=== PATIENT | male | born 1945 | race Caucasian/White ===

== ENCOUNTER 2023-08-25 10:07 | Observation (INO) ==
[2023-08-25 10:18] VITALS: BMI 28.1
[2023-08-25 10:22] LABS: BASOPHILS # (AUTO) 0.1 X10^3/uL (0.0-0.1); BASOPHILS % (AUTO) 0.6 % (0.2-1.0); EOSINOPHILS # (AUTO) 0.1 x10^3/uL (0.0-0.2); EOSINOPHILS % (AUTO) 0.7 % (0.9-2.9); HEMATOCRIT 29.1 % (42.0-54.0); HEMOGLOBIN 9.7 g/dL (13.5-18.0); LYMPHOCYTES # (AUTO) 1.6 X10^3/uL (1.3-2.9); MEAN CORPUSCULAR HEMOGLOBIN 29.4 pg (27.0-34.0); MEAN CORPUSCULAR HGB CONC 33.4 g/dL (33.0-35.0); MEAN CORPUSCULAR VOLUME 87.8 fL (80.0-100.0); MONOCYTES # (AUTO) 1.2 x10^3/uL (0.3-0.8); MONOCYTES % (AUTO) 10.4 % (0.0-13.0); NEUTROPHILS # (AUTO) 8.6 x10^3/uL (2.2-4.8); NEUTROPHILS % (AUTO) 74.3 % (42.0-75.0); PLATELET COUNT 200 X10^3/uL (150.0-450.0); RED BLOOD COUNT 3.31 X10^6/uL (4.7-6.0); RED CELL DISTRIBUTION WIDTH 18.6 % (11.6-16.5); WHITE BLOOD COUNT 11.6 X10^3/uL (3.6-10.0)
[2023-08-25 10:30] LABS: INR 1.09 (0.8-1.3)
[2023-08-25 10:38] LABS: ALBUMIN 3.3 g/dL (3.4-5.0); CALCIUM 9.1 mg/dL (8.5-10.1); CARBON DIOXIDE 27.9 mmol/L (21-32); CHOL/HDL RATIO 2.5 (0.0-5.0); COR CA(FOR HYPOALB) 9.7 mg/dL (8.5-10.1); CREATININE 1.72 mg/dL (0.70-1.30); POTASSIUM 3.7 mmol/L (3.5-5.1); TOTAL PROTEIN 6.9 g/dL (6.4-8.2)
--- NOTE | 2023-08-25 10:38 | DR.WEAKNES ---
HPI Time Seen Time Seen by Provider: 08/25/23 10:10 Primary Care Physician Primary Care Physician: Dr. Swenson at [facility] in [place] Complaints Chief Complaint Doctors Comments: According to the patient's spouse on yesterday he did seem a little bit disoriented. Did not answer questions appropriately. When she Gout home from work yesterday at 5 PM.This patient was more disoriented this morningAnd she brought him to the ER for further evaluation. Chief Complaint:: Pt's states that yesterday morning is the last time she has seen him normal. When she got home from work at 5pm yesterday he was was wandering around the yard and couldn't get his words out right. She states that this morning he got up and was just wandering around the house not making sense Source History Provided: Family Member Mode of Arrival Mode of Arrival: Ambulatory Timing Onset of Chief Complaint: 08/24/23 Symptom Onset: Known (32 hours) Context Stroke Symptoms: Acute confusion PMH PMH Past Medical History: Yes Past Medical History: Anemia, Dyslipidemia, Hypertension and Renal Disease Past Medical History Comment: Prostate Cancer, Afib Past Surgical History: Yes Surgical History: Ortho Surgery Past Surgical History Comment: TAVR (07/12/23), Bilateral TKA, Prostatectomy Family History History of Family Medical Conditions: Yes Family Medical History: Diabetes Mellitus Social History Does patient currently use any type of tobacco product: No Have you used tobacco products in the last 12 months: No Type of Tobacco Use: None Does any household member use tobacco: No Alcohol Use: None Do you use any recreational Drugs:: No Lives With: Spouse Lives Where: Home Travel Risk Coronavirus risk:travel/contact w/high risk person: No Has patient experienced Coronavirus symptoms: No Infectious screening In the last 2 months have you had wt loss of >10#?: NO Have you had fever, night sweats or hemotysis?: No Have you traveled outside the country in the last 6 months?: No Isolation: Standard ROS Review of Systems Constitutional: Other (Change in mental status, unstable gait) Eyes: No Symptoms Reported ENTM: No Symptoms Reported Respiratoy: No Symptoms Reported Cardiovascular: No Symptoms Reported Gastrointestinal/Abdominal: No Symptoms Reported Genitourinary: No Symptoms Reported Neurological: Other (Expressive aphasia) Endocrine: No Symptoms Reported Psychiatric: No Symptoms Reported PE Vital Signs Vitals: Vital Signs Temperature 98.1 F Pulse Rate 62 Pulse Rate 64 Pulse Rate 70 Pulse Rate 63 Pulse Rate 64 Pulse Rate 66 Pulse Rate 65 Pulse Rate 64 Pulse Rate 64 Pulse Rate 75 Pulse Rate 66 Pulse Rate 69 Pulse Rate 70 Pulse Rate 66 Pulse Rate 68 Pulse Rate 63 Pulse Rate 65 Pulse Rate 66 Pulse Rate 66 Pulse Rate 67 Pulse Rate 70 Pulse Rate 73 Pulse Rate 74 Pulse Rate 72 Pulse Rate 74 Respiratory Rate 23 Respiratory Rate 38 Respiratory Rate 27 Respiratory Rate 29 Respiratory Rate 36 Respiratory Rate 19 Respiratory Rate 24 Respiratory Rate 26 Respiratory Rate 18 Respiratory Rate 17 Respiratory Rate 23 Respiratory Rate 21 Respiratory Rate 24 Respiratory Rate 25 Respiratory Rate 19 Respiratory Rate 20 Respiratory Rate 18 Respiratory Rate 17 Respiratory Rate 18 Respiratory Rate 12 Respiratory Rate 20 Blood Pressure 174/79 Blood Pressure 161/72 Blood Pressure 157/72 Blood Pressure 231/160 Blood Pressure 231/160 Blood Pressure 173/84 Blood Pressure 170/75 Blood Pressure 165/91 Blood Pressure 147/93 Blood Pressure 128/61 Blood Pressure 111/53 Blood Pressure 115/53 Blood Pressure 112/53 Blood Pressure 150/69 Blood Pressure 145/69 Blood Pressure 199/81 Blood Pressure 190/83 O2 Sat by Pulse Oximetry 100 O2 Sat by Pulse Oximetry 100 O2 Sat by Pulse Oximetry 99 O2 Sat by Pulse Oximetry 99 O2 Sat by Pulse Oximetry 100 O2 Sat by Pulse Oximetry 99 O2 Sat by Pulse Oximetry 99 O2 Sat by Pulse Oximetry 99 O2 Sat by Pulse Oximetry 99 O2 Sat by Pulse Oximetry 99 O2 Sat by Pulse Oximetry 98 O2 Sat by Pulse Oximetry 98 O2 Sat by Pulse Oximetry 99 O2 Sat by Pulse Oximetry 98 O2 Sat by Pulse Oximetry 85 O2 Sat by Pulse Oximetry 94 O2 Sat by Pulse Oximetry 99 O2 Sat by Pulse Oximetry 96 O2 Sat by Pulse Oximetry 70 O2 Sat by Pulse Oximetry 100 O2 Sat by Pulse Oximetry 96 O2 Sat by Pulse Oximetry 98 O2 Sat by Pulse Oximetry 99 O2 Sat by Pulse Oximetry 97 O2 Sat by Pulse Oximetry 98 O2 Sat by Pulse Oximetry 97 General Limitations: Physical Limitation (Present unstable gait) General Appearance: Other (Confusion) Head Head Exam: Normal Inspection, Atraumatic and Normocephalic Eyes Eye exam: Normal Appearance, PERRL and EOMI Eyelids: Normal Inspection: Bilateral Pupils: Regular, Round: Bilateral ENT ENT Exam: Normal Exam, Normal Oropharynx and Normal External Ear Exam Mouth Exam: Normal Inspection Throat Exam: Normal Inspection Neck Neck Exam: Normal Inspection, Full ROM and Trachea Midline Chest Chest Inspection: Normal Inspection and Symmetric Chest Wall Rise Respiratory Respiratory Exam: Normal Lung Sounds Bilat Respiratory Exam: Bilateral: Clear to Auscultation Cardiovascular Cardiovascular Exam: Regular Rate and Normal Rhythm Abdominal Exam Abdominal Exam: Normal Inspection, Normal Bowel Sounds and Soft Extremities Extremities Exam: Normal Inspection and Full ROM Back Back Exam: Normal Inspection Neurologic Neurological Exam: Alert Patient Oriented To: Person and Place Speech: Expressive Aphasia Motor Strength - LUE: 4/5 Motor Strength - RUE: 4/5 Motor Strength - LLE: 4/5 Motor Strength - RLE: 4/5 Psychiatric Psychiatric Exam: Flat Affect Skin Skin Exam: Warm, Dry and Intact MDM Differential Diagnosis Differential Diagnosis: CVA, Electrolyte Disorder, TIA and Other (uti,pneumonia) COURSE Treatment Treatment: This patient was placed on the stroke alert protocol and Dr. Venu Giron neurologist evaluated the patient he called me back at 1045 he stated the patient did not seem to meet criteria for an acute stroke or since it has been over 32 hours since the symptoms started he did not require any tPA or anything is CT of brain did not show acute stroke. The patient's symptoms are concerning we may consider an MRI of the brain without contrast. This the patient also had some leukocytosis he suggest that we do try to find a source of the leukocytosis so we are waiting on results of x-ray also the urine analysis and will proceed as needed for further evaluation for the leukocytosis. He stated to continue the patient on aspirin daily and proceed as needed with further neurologic evaluation and treatment of the source of the leukocytosis. This patient had a MRI of his brain that did not show an acute bleed or no acute intracranial abnormality. We did a urinalysis that was negative chest x-ray did not show any intra or thoracic abnormality except some mild CHF. During the end of this ER evaluation the patient was more alert and was able to speak better seems that he was coming back around almost to his normal demeanor. However spoke to the on-call physician Dr. Singh and we are going to refer the patient to observation for TIA. I spoke to Dr. Singh at 1410 and she agreed to the observation admission. The patient family was told of the intent to refer to observation and that they were agreeable to the observation ROR Labs Reviewed Laboratory Results Reviewed?: Yes 08/25/23 10:15 08/25/23 10:15 Laboratory: WBC 11.6 X10^3/uL (3.6-10.0) H 08/25/23 10:15 RBC 3.31 X10^6/uL (4.7-6.0) L 08/25/23 10:15 Hgb 9.7 g/dL (13.5-18.0) L 08/25/23 10:15 Hct 29.1 % (42.0-54.0) L 08/25/23 10:15 MCV 87.8 fL (80.0-100.0) 08/25/23 10:15 MCH 29.4 pg (27.0-34.0) 08/25/23 10:15 MCHC 33.4 g/dL (33.0-35.0) 08/25/23 10:15 RDW 18.6 % (11.6-16.5) H 08/25/23 10:15 Plt Count 200 X10^3/uL (150.0-450.0) 08/25/23 10:15 MPV 8.0 fL (7.4-11.0) 08/25/23 10:15 Neut % (Auto) 74.3 % (42.0-75.0) 08/25/23 10:15 Lymph % (Auto) 14.0 % (21.0-51.0) L 08/25/23 10:15 Terry % (Auto) 10.4 % (0.0-13.0) 08/25/23 10:15 Eos % (Auto) 0.7 % (0.9-2.9) L 08/25/23 10:15 Baso % (Auto) 0.6 % (0.2-1.0) 08/25/23 10:15 Neut # (Auto) 8.6 x10^3/uL (2.2-4.8) H 08/25/23 10:15 Lymph # (Auto) 1.6 X10^3/uL (1.3-2.9) 08/25/23 10:15 Terry # (Auto) 1.2 x10^3/uL (0.3-0.8) H 08/25/23 10:15 Eos # (Auto) 0.1 x10^3/uL (0.0-0.2) 08/25/23 10:15 Baso # (Auto) 0.1 X10^3/uL (0.0-0.1) 08/25/23 10:15 Absolute Nucleated RBC 0.0 /100WBC 08/25/23 10:15 PT 13.9 SECONDS (11.8-14.3) 08/25/23 10:15 INR Target Range - 08/25/23 10:15 INR 1.09 (0.8-1.3) 08/25/23 10:15 APTT < 20.0 SECONDS (22.9-36.5) L 08/25/23 10:15 PTT Comment - 08/25/23 10:15 Fibrinogen 419 mg/dL (239-489) 08/25/23 10:15 Sodium 145 mmol/L (136-145) 08/25/23 10:15 Corrected Sodium 146 mmol/L (136-145) H 08/25/23 10:15 Potassium 3.7 mmol/L (3.5-5.1) 08/25/23 10:15 Chloride 108 mmol/L (98-107) H 08/25/23 10:15 Carbon Dioxide 27.9 mmol/L (21-32) 08/25/23 10:15 BUN 21 mg/dL (7-18) H 08/25/23 10:15 Creatinine 1.72 mg/dL (0.70-1.30) H 08/25/23 10:15 Est GFR (MDRD) Af Amer 50 (>60) L 08/25/23 10:15 Est GFR (MDRD) Non-Af 41 (>60) L 08/25/23 10:15 Glucose 137 mg/dL (65-99) H 08/25/23 10:15 Calcium 9.1 mg/dL (8.5-10.1) 08/25/23 10:15 Corrected Calcium 9.7 mg/dL (8.5-10.1) 08/25/23 10:15 Total Bilirubin 0.40 mg/dL (0.2-1.0) 08/25/23 10:15 AST 27 Units/L (15-37) 08/25/23 10:15 ALT 26 Units/L (12-78) 08/25/23 10:15 Alkaline Phosphatase 80 Units/L (46-116) 08/25/23 10:15 Creatine Kinase 59 Units/L (39-308) 08/25/23 10:15 Troponin I High Sens 11.2 ng/L (4.0-60.0) 08/25/23 10:15 B-Natriuretic Peptide 213 pg/mL (0-79) H 08/25/23 10:15 Total Protein 6.9 g/dL (6.4-8.2) 08/25/23 10:15 Albumin 3.3 g/dL (3.4-5.0) L 08/25/23 10:15 Globulin 3.6 g/dL (2.5-4.5) 08/25/23 10:15 Albumin/Globulin Ratio 0.9 Ratio (1.1-2.1) L 08/25/23 10:15 Triglycerides 157 mg/dL (0-150) H 08/25/23 10:15 Cholesterol 114 mg/dL (0-200) 08/25/23 10:15 LDL Cholesterol, Calc 38 mg/dL (0-100) 08/25/23 10:15 HDL Cholesterol 45 mg/dL (40-60) 08/25/23 10:15 Cholesterol/HDL Ratio 2.5 (0.0-5.0) 08/25/23 10:15 Specimen Type Catherized urine 08/25/23 11:08 Urine Color Yellow (YELLOW) 08/25/23 11:08 Urine Appearance Clear (CLEAR) 08/25/23 11:08 Urine pH 6.0 (5.0 - 8.0) 08/25/23 11:08 Ur Specific [place] 1.025 (1.000-1.030) 08/25/23 11:08 Urine Protein 2+ (NEGATIVE) 08/25/23 11:08 Urine Glucose (UA) Negative (NEGATIVE) 08/25/23 11:08 Urine Ketones Negative (NEGATIVE) 08/25/23 11:08 Urine Blood Negative (NEGATIVE) 08/25/23 11:08 Urine Nitrite Negative (NEGATIVE) 08/25/23 11:08 Urine Bilirubin Negative (NEGATIVE) 08/25/23 11:08 Urine Urobilinogen Normal (NORMAL) 08/25/23 11:08 Ur Leukocyte Esterase Negative (NEGATIVE) 08/25/23 11:08 Urine RBC 0-2 /HPF (0-3) 08/25/23 11:08 Urine WBC 0-2 /HPF (0-5) 08/25/23 11:08 Ur Squamous Epith Cells Rare /HPF (NEGATIVE) 08/25/23 11:08 Ur Renal Epithelial Cell Few /HPF (NEGATIVE) 08/25/23 11:08 Urine Bacteria Trace /HPF (NEGATIVE) 08/25/23 11:08 Hyaline Casts Few /LPF (NEGATIVE) 08/25/23 11:08 Ur Culture Indicated? No/not indicated 08/25/23 11:08 SARS-CoV-2 (PCR) Negative (NEGATIVE) 08/25/23 11:05 Influenza Type A (PCR) Negative (NEGATIVE) 08/25/23 11:05 Influenza Type B (PCR) Negative (NEGATIVE) 08/25/23 11:05 RSV (PCR) Negative (NEGATIVE) 08/25/23 11:05 Opioid Opioid Risk Tool Age (Yoel box if 16-45): No History of Preadolescent Sexual Abuse: No Total: 0 Total Score Risk Category: Low Risk Copyright: Armand REDDING predicting aberrant behaviors Discharge Plan Diagnosis Discharge Problem: Brain TIA, Mild congestive heart failure Discharge Plan Patient Disposition: ADMITTED INPATIENT Condition: Stable Prescriptions: No Action sennosides [Senokot] 8.6 mg Tablet 8.6 mg PO BID baclofen 10 mg Tablet 10 mg PO TID prednisone 5 mg Tablets,Dose Pack 5 mg PO DIRECTED Rx Instructions: see taper instructions finasteride 5 mg Tablet 5 mg PO QDAY rosuvastatin 20 mg Tablet 20 mg PO QDAY acetaminophen [Tylenol] 325 mg Capsule 650 mg PO QID PRN cholecalciferol (vitamin D3) [Vitamin D3] 50 mcg (2,000 unit) Capsule 50 mcg PO QDAY lidocaine 5 % Ointment 1 applic TOPICAL QID PRN tamsulosin [Flomax] 0.4 mg Capsule 0.4 mg PO QDAY Health Concerns: Post Hospitalization: new medications and changes needed to prevent readmission or further decline. Pt educated and given instructions on all concerns. Plan of Treatment: Continue with present treatment and follow up plan. Pt is to keep follow up appointment as instructed and take medications as ordered. Orders to Discharge Patient Discharge Orders: Transfer (Routine); Ordered 08/25/23 Ordered By: Ronaldo Taylor Follow ups/Referrals Follow ups/Referrals: JESUS PURI [Primary Care Provider] - 3 days Instructions Stand Alone Forms: Post Hospital Follow Up Care
--- NOTE | 2023-08-25 10:39 | CT ---
EXAM:BRAIN W/O CONHISTORY:AMS;COMPARISON:No relevant prior studies were available for comparison at the time of interpretation..TECHNIQUE:CT images were obtained. Multiplanar reconstructions were created on a separate workstation and used during interpretation. All CT scans at this facility is dose modulation, iterative reconstruction, and/or weight-based dosing as appropriate to reduce radiation to levels as low as reasonably achievable (ALARA). Postprocessing details, radiation dose, and contrast dose (if applicable) are recorded in the patient's medical record.FINDINGS:Acute findings: There is no intracranial hemorrhage. No mass effect. No intra-axial or extra-axial fluid collection. There is no mass. No tentorial, uncal, or tonsillar herniation.Brain volume and white matter: There is diffuse cortical atrophy. There is hypoattenuation in the supratentorial white matter consistent with chronic microvascular ischemic disease.Ventricles: No hydrocephalusMidline structures: Pituitary gland and corpus callosum are normal.Posterior fossa and skull base: Cerebellum and posterior fossa are within normal limits. Basal cisterns are not effaced.Sinuses and mastoids: Paranasal sinuses and mastoid air cells are predominantly clear.Globes and Orbits: Bilateral lens implants. Globes are intact. Bony orbits are intact. Extraocular muscles and retrobulbar fat appear normal.Skull and soft tissues: No depressed skull fracture. Calvarium appears intact. No scalp injury is identified.IMPRESSION:1. No acute intracranial abnormalityTHIS IS AN ELECTRONICALLY VERIFIED FINAL REPORT08/25/2023 10:36 AM - Electronically signed by Lj Meek MD
--- NOTE | 2023-08-25 10:48 | TELESTROKE ---
[facility] Consult Date of Consult Date of Exam: 08/25/23 Time of Arrival to the ED: 10:15 Vital Signs Vital Signs: Temp Pulse Resp BP Pulse Ox O2 Del Method 08/25/23 10:12 98.1 F 74 20 190/83 97 Room Air History of Present Illness History of Present Illness: [facility] Consult Services Patient Name:Linus Tapia Date of :1945 Identification Number: Date of Service:08/25/2023 10:14:00 Diagnosis:R41.0 - Disorientation, unspecified Impression: This is a 78 year old male with CAD s/p TAVR who presents to the [facility] in the morning of 08/25/23 for complaints of altered mental status. The reports he was last known well at 5 AM yesterday, 08/24/23 (29 hours ago). The left for work at 5 AM. When she returned from work at 5 PM he was altered and walking around the yard picking up sticks and acting unusual and not speaking normally. She did not bring him to the hospital. This morning, he is still confused, so she brought him to the hospital today. On exam he has no focal weakness, but is confused and easily distractible and slow to answer questions. He names most objects and reads sentences ,but does so very slowly. He is oriented to self but not month or age etc. He follows simple commands. Given diffuse confusion, differential includes hypertensive encephalopathy versus metabolic/infectious/toxic encephalopathy. Indeed, he has leukocytosis today, which supports this suspicion. He is not a tPA/TNk candidate due to LKW>4.5 hours. Recs below. Recommendations: Telemetry Floor Bedside Swallow Eval DVT Prophylaxis Euglycemia and Avoid Hyperthermia (PRN Acetaminophen) Systolic BP cap <180 Continue home aspirin 81 mg daily. If persistent alteration without identified cause, Brain MRI without contrast Metabolic, infectious, and toxic workup including (or per primary team): CXR, UA, CBC, CMP, LFTs, NH3, TSH, COVID. Treat abnormalities as appropriate. Delirium precautions (lights on during day and off at night, family visits as appropriate, familiar objects in room, avoid polypharmacy, nighttime strategies to improve sleep by non-sedating means, encourage mobility as tolerated) If infectious signs (fever or leukocytosis) and altered mentation, but no identifiable source of infection, obtain blood culture and lumbar puncture with CSF testing for: HSV/EBV/VZV/CMV PCR, culture, gram stain, glucose, protein, cell counts. Advanced Imaging: Advanced Imaging Deferred because: LKW >24 hours, exam not suggestive of LVO Metrics: Last Known Well: 08/24/2023 05:00:00 [facility] Notification Time: 08/25/2023 10:13:59 Arrival Time: 08/25/2023 10:15:00 Stamp Time: 08/25/2023 10:14:00 Initial Response Time: 08/25/2023 10:21:58Symptoms: Altered mental status. Initial patient interaction: 08/25/2023 10:21:58 NIHSS Assessment Completed: 08/25/2023 10:28:00Patient is not a candidate for Thrombolytic. Thrombolytic Medical Decision: 08/25/2023 10:28:00Patient was not deemed candidate for Thrombolytic because of following reasons: Last Well Known Above 4.5 Hours. I personally Reviewed the CT Head and it Showed no acute pathology, no hemorrhage . Primary Provider Notified of Diagnostic Impression and Management Plan on: 08/25/2023 10:40:17 History of Present Illness:Patient is a 78 year old Male. Patient was brought by private transportation with symptoms of Altered mental status. This is a 78 year old male with CAD s/p TAVR who presents to the [facility] in the morning of 08/25/23 for complaints of altered mental status. The reports he was last known well at 5 AM yesterday, 08/24/23 (29 hours ago). The left for work at 5 AM. When she returned from work at 5 PM he was altered and walking around the yard picking up sticks and acting unusual and not speaking normally. She did not bring him to the hospital. This morning, he is still confused, so she brought him to the hospital today. On exam he has no focal weakness, but is confused and easily distractible and slow to answer questions. He names most objects and reads sentences ,but does so very slowly. He is oriented to self but not month or age etc. He follows simple commands. Past Medical History: Coronary Artery Disease Othere PMH: TAVR 07/12/23, prostate cancer Medications: No Anticoagulant use Antiplatelet use:YesASA 81 Reviewed EMR for current medications Allergies: Reviewed Social History: Drug Use: No Family History: There is no family history of premature cerebrovascular disease pertinent to this consultation ROS : 14 Points Review of Systems was performed and was negative except mentioned in HPI. Past Surgical History: There Is No Surgical History Contributory To Todays Visit Examination: BP(190/83),Pulse(75), 1A: Level of Consciousness - Alert; keenly responsive+ 0 1B: Ask Month and Age - Could Not Answer Either Question Correctly+ 2 1C: Blink Eyes & Squeeze Hands - Performs Both Tasks+ 0 2: Test Horizontal Extraocular Movements - Normal+ 0 3: Test Visual Que[place]o - No Visual Loss+ 0 4: Test Facial Palsy (Use Grimace if Obtunded) - Normal symmetry+ 0 5A: Test Left Arm Motor Drift - No Drift for 10 Seconds+ 0 5B: Test Right Arm Motor Drift - No Drift for 10 Seconds+ 0 6A: Test Left Leg Motor Drift - No Drift for 5 Seconds+ 0 6B: Test Right Leg Motor Drift - No Drift for 5 Seconds+ 0 7: Test Limb Ataxia (FNF/Heel-Lawson) - No Ataxia+ 0 8: Test Sensation - Normal; No sensory loss+ 0 9: Test Language/Aphasia - Normal; No aphasia+ 0 10: Test Dysarthria - Normal+ 0 11: Test Extinction/Inattention - No abnormality+ 0 NIHSS Score:2 Pre-Morbid Modified [place] Scale:0 Points = No symptoms at all Spoke with :ed provider Patient/Family was informed the Neurology Consult would occur via TeleHealth consult by way of interactive audio and video telecommunications and consented to receiving care in this manner. Patient is being evaluated for possible acute neurologic impairment and high probability of imminent or life-threatening deterioration. I spent total of 40 minutes providing care to this patient, including time for face to face visit via telemedicine, review of medical records, imaging studies and discussion of findings with providers, the patient and/or family. Dr Adryan Giron [facility] For Inpatient follow-up with [facility] physician please call [facility] . This is not an outpatient service. Post hospital discharge, please contact hospital directly. Please call or reconsult our service if there are any clinical or diagnostic changes. Medical Decision Making 08/25/23 10:15 08/25/23 10:15 Labs: Laboratory Results - last 24 hr 08/25/23 10:15 WBC 11.6 H RBC 3.31 L Hgb 9.7 L Hct 29.1 L MCV 87.8 MCH 29.4 MCHC 33.4 RDW 18.6 H Plt Count 200 MPV 8.0 Neut % (Auto) 74.3 Lymph % (Auto) 14.0 L Cloud % (Auto) 10.4 Eos % (Auto) 0.7 L Baso % (Auto) 0.6 Neut # (Auto) 8.6 H Lymph # (Auto) 1.6 Cloud # (Auto) 1.2 H Eos # (Auto) 0.1 Baso # (Auto) 0.1 Absolute Nucleated RBC 0.0 PT 13.9 INR Target Range - INR 1.09 PTT Comment - Fibrinogen 419 Sodium 145 Corrected Sodium 146 H Potassium 3.7 Chloride 108 H Carbon Dioxide 27.9 BUN 21 H Creatinine 1.72 H Est GFR (MDRD) Af Amer 50 L Est GFR (MDRD) Non-Af 41 L Glucose 137 H Calcium 9.1 Corrected Calcium 9.7 Total Bilirubin 0.40 AST 27 ALT 26 Alkaline Phosphatase 80 Creatine Kinase 59 Troponin I High Sens 11.2 Total Protein 6.9 Albumin 3.3 L Globulin 3.6 Albumin/Globulin Ratio 0.9 L Triglycerides 157 H Cholesterol 114 LDL Cholesterol, Calc 38 HDL Cholesterol 45 Cholesterol/HDL Ratio 2.5
--- NOTE | 2023-08-25 10:51 | EKG ---
Test Reason : possible stroke Blood Pressure : */* mmHG Vent. Rate : 73 BPM Atrial Rate : 73 BPM P-R Int : 156 ms QRS Dur : 94 ms QT Int : 400 ms P-R-T Axes : 52 31 48 degrees QTc Int : 440 ms Normal sinus rhythm Nonspecific ST abnormality Abnormal ECG No previous ECGs available Confirmed by Jean Marie Aguilar ([id number]) on 08/26/2023 7:33:06 AM Referred By: Confirmed By: Jean Marie Aguilar
--- NOTE | 2023-08-25 11:02 | RAD ---
EXAM:CHEST, 1 VIEWHISTORY:HTN, AMS;COMPARISON:No relevant prior studies were available for comparison at the time of interpretation.TECHNIQUE:CHEST, 1 VIEWFINDINGS:Chest:Lines and tubes: Cardiac leads overlie the chest.Mediastinum: Cardiomegaly.Pulmonary vessels: There is pulmonary vascular congestion.Lung oakley: No suspicious airspace opacity.Pleura: No effusion. No pneumothorax.Bones and soft tissues: No acute osseous or soft tissue abnormality.IMPRESSION:1. Heart failure suggestedTHIS IS AN ELECTRONICALLY VERIFIED FINAL REPORT08/25/2023 10:48 AM - Electronically signed by Lj Meek MD
[2023-08-25 11:17] LABS: BILIRUBIN,URINE NEGATIVE (NEGATIVE); BLOOD/HEMOGLOBIN,URINE NEGATIVE (NEGATIVE); GLUCOSE, URINE NEGATIVE (NEGATIVE); KETONES,URINE NEGATIVE (NEGATIVE); LEUKOCYTE ESTERASE ,URINE NEGATIVE (NEGATIVE); NITRITES,URINE NEGATIVE (NEGATIVE); PROTEIN,URINE 2+ (NEGATIVE); UROBILINOGEN,URINE NORMAL (NORMAL)
[2023-08-25 11:28] LABS: APPEARANCE,URINE CLEAR (CLEAR); BACTERIA,URINE TRACE /HPF (NEGATIVE); COLOR,URINE YELLOW (YELLOW); HYALINE CASTS, URINE FEW /LPF (NEGATIVE); RBC,URINE 0-2 /HPF (0-3); RENAL EPITHELIAL CELLS,URINE FEW /HPF (NEGATIVE); SQUAMOUS EPITHELIAL CELL,UR RARE /HPF (NEGATIVE)
--- NOTE | 2023-08-25 13:12 | MRI ---
EXAM: BRAIN W/O CON HISTORY: expressive aphasia; evaluate stroke COMPARISON: Head CT 08/25/2023 TECHNIQUE: Multiplanar multisequence MRI of the brain was obtained without contrast using standard departmental protocol. FINDINGS: Axial T2 imaging not submitted. T2 coronal images were submitted. Diffusion-weighted images show a small focal area of increased signal in the right posterior frontal white matter. This has increased signal on the ADC map and high T2 signal on FLAIR and T2 imaging. This is consistent with T2 shine through artifact. No abnormality to suggest acute ischemia. Age-related findings include central and cortical atrophy with abnormal signal in the periventricular white matter, most likely the micro-ischemic changes of aging. Otherwise cool and white matter have normal differentiation. There is no mass, shift, or hemorrhage. Cerebellar tonsils are at an appropriate level. Normal signal flow void in the central vessels as seen on coronal imaging. No abnormal signal on kvng ceptibility sequences. No fluid in the sinuses or mucosal thickening to suggest sinusitis. There is no mastoid effusion. IMPRESSION: 1. No acute findings THIS IS AN ELECTRONICALLY VERIFIED FINAL REPORT 08/25/2023 1:09 PM - Electronically signed by Rusty Self MD
[2023-08-25] MEDS ORDERED: TYLENOL 325 MG TAB PO PRN (15:05)
[2023-08-25] MEDS: LASIX IVP SCH (17:18)
[2023-08-25] MEDS: SENOKOT PO SCH (20:58)
[2023-08-26 06:02] LABS: BASOPHILS % (AUTO) 0.6 % (0.2-1.0); EOSINOPHILS # (AUTO) 0.2 x10^3/uL (0.0-0.2); EOSINOPHILS % (AUTO) 2.2 % (0.9-2.9); HEMATOCRIT 27.2 % (42.0-54.0); HEMOGLOBIN 9.1 g/dL (13.5-18.0); LYMPHOCYTES # (AUTO) 0.9 X10^3/uL (1.3-2.9); LYMPHOCYTES % (AUTO) 11.7 % (21.0-51.0); MEAN CORPUSCULAR HEMOGLOBIN 29.4 pg (27.0-34.0); MEAN CORPUSCULAR HGB CONC 33.7 g/dL (33.0-35.0); MEAN CORPUSCULAR VOLUME 87.2 fL (80.0-100.0); MEAN PLATELET VOLUME 8.2 fL (7.4-11.0); MONOCYTES # (AUTO) 1.1 x10^3/uL (0.3-0.8); MONOCYTES % (AUTO) 14.1 % (0.0-13.0); NEUTROPHILS # (AUTO) 5.7 x10^3/uL (2.2-4.8); NEUTROPHILS % (AUTO) 71.4 % (42.0-75.0); PLATELET COUNT 198 X10^3/uL (150.0-450.0); RED BLOOD COUNT 3.12 X10^6/uL (4.7-6.0); RED CELL DISTRIBUTION WIDTH 18.8 % (11.6-16.5)
[2023-08-26 06:15] LABS: ALANINE AMINOTRANSFERASE 24 Units/L (12-78); ALBUMIN 2.9 g/dL (3.4-5.0); ALKALINE PHOSPHATASE 59 Units/L (46-116); ASPARTATE AMINO TRANSFERASE 19 Units/L (15-37); BLOOD UREA NITROGEN 19 mg/dL (7-18); CALCIUM 8.8 mg/dL (8.5-10.1); CARBON DIOXIDE 29.8 mmol/L (21-32); CHLORIDE 106 mmol/L (98-107); COR CA(FOR HYPOALB) 9.7 mg/dL (8.5-10.1); CREATININE 1.62 mg/dL (0.70-1.30); GLUCOSE 100 mg/dL (65-99); POTASSIUM 3.8 mmol/L (3.5-5.1); SODIUM 143 mmol/L (136-145); TOTAL PROTEIN 6.2 g/dL (6.4-8.2); eGFR NON BLACK RACES 44 (>60)
[2023-08-26] MEDS ORDERED: CONSULT PHARMACY - POTASSIUM & MAGNESIUM XX SCH (07:00)
[2023-08-26] MEDS: PROSCAR PO SCH (08:36)
[2023-08-26] MEDS: MICRO K EXTEN CAP 10 MEQ PO SCH (08:36)
[2023-08-26] MEDS: FLOMAX PO SCH (08:36)
[2023-08-26] MEDS: VITAMIN D3 25 mcg (1,000 UNITS) PO SCH (08:37)
[2023-08-26] MEDS: CRESTOR TAB 10 MG PO SCH (08:37)
[2023-08-26 12:34] VITALS: BP 146/70; PULSE 90
[2023-08-26 12:35] VITALS: RESP 18; TEMP 97.2; O2SAT 98
--- NOTE | 2023-08-28 10:02 | DR.SSS ---
SHORT STAY SUMMARY Admission Date Date of Admission: 08/25/23 Discharge Date Discharge Date: 08/26/23 Admission Diagnoses Admission Diagnoses: Altered mental status TIA Discharge Diagnoses Discharge Diagnoses: TIA Pulmonary congestion Chief Complaint Chief Complaint: confusion, AMS History of Present Illness History of Present Illness: Patient is a 78-year-old male with a past medical history of hyperlipidemia, BPH, iron deficiency anemia presented with confusion and altered mental status. noticed patient to be not acting like himself yesterday evening, she stated that he seemed a bit disoriented and was wandering around the house. In the morning she noticed that patient was laughing randomly so she brought him to the ER. All the workup in the ER was negative including CT brain and MRI brain. It did not show any acute stroke. Patient's labs and urinalysis did not show any infection. Patient was admitted for observation and neurochecks. Past Medical History Past Medical History: Anemia, Dyslipidemia, Hypertension and Renal Disease Past Surgical History Surgical History: Angioplasty/Stents and Ortho Surgery Allergies Allergies Allergy/AdvReac Type Severity Reaction Status Date / Time No Known Allergies Allergy Verified 08/25/23 10:52 Medications Home Medications: No Known Allergies Allergy (Verified 08/25/23 10:52) CONTINUE taking the following medications acetaminophen 325 mg capsule (Tylenol) 650 mg PO QID PRN 08/25/23 [History] baclofen 10 mg tablet 10 mg PO TID 08/25/23 [History] cholecalciferol (vitamin D3) 50 mcg (2,000 unit) capsule (Vitamin D3) 50 mcg PO QDAY 08/25/23 [History] finasteride 5 mg tablet 5 mg PO QDAY 08/25/23 [History] lidocaine 5 % topical ointment 1 applic topical QID PRN 08/25/23 [History] prednisone 5 mg tablets in a dose pack 5 mg PO DIRECTED 08/25/23 [History] rosuvastatin 20 mg tablet 20 mg PO QDAY 08/25/23 [History] sennosides 8.6 mg tablet (Senokot) 8.6 mg PO BID 08/25/23 [History] tamsulosin 0.4 mg capsule (Flomax) 0.4 mg PO QDAY 08/25/23 [History] Family History Family Medical History: Diabetes Mellitus and Hypertension Social History Does patient currently use any type of tobacco product: No Have you used tobacco products in the last 12 months: No Type of Tobacco Use: None Does any household member use tobacco: No Alcohol Use: None Drug Use: None Review of Systems Constitutional: No Symptoms Reported Eyes: No Symptoms Reported ENT: No Symptoms Reported Respiratory: No Symptoms Reported Cardiovascular: No Symptoms Reported Gastrointestinal: No Symptoms Reported Genitourinary: No Symptoms Reported Musculoskeletal: No Symptoms Reported Skin: No Symptoms Reported Neurological: Confusion Physical Exam Vital Signs: Last Vital Signs Temp 97.2 F L 08/26/23 12:00 Pulse 90 08/26/23 12:33 Resp 18 08/26/23 12:00 BP 146/70 08/26/23 12:33 Pulse Ox 98 08/26/23 12:00 O2 Del Method Room Air 08/26/23 12:00 Oriented: Time (Month and day.), Person and Place Eyes: Normal Ear: Normal Nose: Normal Throat: Normal Respiratory: Diminished Throughout Cardiovascular: Normal Auscultation: Bowel Sounds: Normal Palpation: Normal Tenderness: Normal Skin: Normal Musculoskeletal: Normal Psychiatric: Normal Mood Description: Calm Affect: Flat Speech Pattern: Appropriate and Delayed Labs Labs: Laboratory Last Values WBC 8.0 X10^3/uL (3.6-10.0) 08/26/23 05:37 RBC 3.12 X10^6/uL (4.7-6.0) L 08/26/23 05:37 Hgb 9.1 g/dL (13.5-18.0) L 08/26/23 05:37 Hct 27.2 % (42.0-54.0) L 08/26/23 05:37 MCV 87.2 fL (80.0-100.0) 08/26/23 05:37 MCH 29.4 pg (27.0-34.0) 08/26/23 05:37 MCHC 33.7 g/dL (33.0-35.0) 08/26/23 05:37 RDW 18.8 % (11.6-16.5) H 08/26/23 05:37 Plt Count 198 X10^3/uL (150.0-450.0) 08/26/23 05:37 MPV 8.2 fL (7.4-11.0) 08/26/23 05:37 Neut % (Auto) 71.4 % (42.0-75.0) 08/26/23 05:37 Lymph % (Auto) 11.7 % (21.0-51.0) L 08/26/23 05:37 [place] % (Auto) 14.1 % (0.0-13.0) H 08/26/23 05:37 Eos % (Auto) 2.2 % (0.9-2.9) 08/26/23 05:37 Baso % (Auto) 0.6 % (0.2-1.0) 08/26/23 05:37 Neut # (Auto) 5.7 x10^3/uL (2.2-4.8) H 08/26/23 05:37 Lymph # (Auto) 0.9 X10^3/uL (1.3-2.9) L 08/26/23 05:37 [place] # (Auto) 1.1 x10^3/uL (0.3-0.8) H 08/26/23 05:37 Eos # (Auto) 0.2 x10^3/uL (0.0-0.2) 08/26/23 05:37 Baso # (Auto) 0.0 X10^3/uL (0.0-0.1) 08/26/23 05:37 Absolute Nucleated RBC 0.0 /100WBC 08/26/23 05:37 PT 13.9 SECONDS (11.8-14.3) 08/25/23 10:15 INR Target Range - 08/25/23 10:15 INR 1.09 (0.8-1.3) 08/25/23 10:15 APTT < 20.0 SECONDS (22.9-36.5) L 08/25/23 10:15 PTT Comment - 08/25/23 10:15 Fibrinogen 419 mg/dL (239-489) 08/25/23 10:15 Sodium 143 mmol/L (136-145) 08/26/23 05:37 Corrected Sodium TNP 08/26/23 05:37 Potassium 3.8 mmol/L (3.5-5.1) 08/26/23 05:37 Chloride 106 mmol/L (98-107) 08/26/23 05:37 Carbon Dioxide 29.8 mmol/L (21-32) 08/26/23 05:37 BUN 19 mg/dL (7-18) H 08/26/23 05:37 Creatinine 1.62 mg/dL (0.70-1.30) H 08/26/23 05:37 Est GFR (MDRD) Af Amer 54 (>60) L 08/26/23 05:37 Est GFR (MDRD) Non-Af 44 (>60) L 08/26/23 05:37 Glucose 100 mg/dL (65-99) H 08/26/23 05:37 Calcium 8.8 mg/dL (8.5-10.1) 08/26/23 05:37 Corrected Calcium 9.7 mg/dL (8.5-10.1) 08/26/23 05:37 Magnesium 2.0 mg/dL (2.0-2.9) 08/26/23 05:37 Total Bilirubin 0.40 mg/dL (0.2-1.0) 08/26/23 05:37 AST 19 Units/L (15-37) 08/26/23 05:37 ALT 24 Units/L (12-78) 08/26/23 05:37 Alkaline Phosphatase 59 Units/L (46-116) 08/26/23 05:37 Creatine Kinase 59 Units/L (39-308) 08/25/23 10:15 Troponin I High Sens 11.2 ng/L (4.0-60.0) 08/25/23 10:15 B-Natriuretic Peptide 213 pg/mL (0-79) H 08/25/23 10:15 Total Protein 6.2 g/dL (6.4-8.2) L 08/26/23 05:37 Albumin 2.9 g/dL (3.4-5.0) L 08/26/23 05:37 Globulin 3.3 g/dL (2.5-4.5) 08/26/23 05:37 Albumin/Globulin Ratio 0.9 Ratio (1.1-2.1) L 08/26/23 05:37 Triglycerides 157 mg/dL (0-150) H 08/25/23 10:15 Cholesterol 114 mg/dL (0-200) 08/25/23 10:15 LDL Cholesterol, Calc 38 mg/dL (0-100) 08/25/23 10:15 HDL Cholesterol 45 mg/dL (40-60) 08/25/23 10:15 Cholesterol/HDL Ratio 2.5 (0.0-5.0) 08/25/23 10:15 Specimen Type Catherized urine 08/25/23 11:08 Urine Color Yellow (YELLOW) 08/25/23 11:08 Urine Appearance Clear (CLEAR) 08/25/23 11:08 Urine pH 6.0 (5.0 - 8.0) 08/25/23 11:08 Ur Specific [place] 1.025 (1.000-1.030) 08/25/23 11:08 Urine Protein 2+ (NEGATIVE) 08/25/23 11:08 Urine Glucose (UA) Negative (NEGATIVE) 08/25/23 11:08 Urine Ketones Negative (NEGATIVE) 08/25/23 11:08 Urine Blood Negative (NEGATIVE) 08/25/23 11:08 Urine Nitrite Negative (NEGATIVE) 08/25/23 11:08 Urine Bilirubin Negative (NEGATIVE) 08/25/23 11:08 Urine Urobilinogen Normal (NORMAL) 08/25/23 11:08 Ur Leukocyte Esterase Negative (NEGATIVE) 08/25/23 11:08 Urine RBC 0-2 /HPF (0-3) 08/25/23 11:08 Urine WBC 0-2 /HPF (0-5) 08/25/23 11:08 Ur Squamous Epith Cells Rare /HPF (NEGATIVE) 08/25/23 11:08 Ur Renal Epithelial Cell Few /HPF (NEGATIVE) 08/25/23 11:08 Urine Bacteria Trace /HPF (NEGATIVE) 08/25/23 11:08 Hyaline Casts Few /LPF (NEGATIVE) 08/25/23 11:08 Ur Culture Indicated? No/not indicated 08/25/23 11:08 SARS-CoV-2 (PCR) Negative (NEGATIVE) 08/25/23 11:05 Influenza Type A (PCR) Negative (NEGATIVE) 08/25/23 11:05 Influenza Type B (PCR) Negative (NEGATIVE) 08/25/23 11:05 RSV (PCR) Negative (NEGATIVE) 08/25/23 11:05 Hospital Course Hospital Course: Patient was admitted overnight for observation for neurochecks and monitoring. His mentation did improve the following day. He was more alert and oriented and able to answer questions appropriately. He did not have any weakness or other neurological deficits. He did have a Elder placed in the ER which was removed and patient was able to ambulate to the bathroom. Patient's labs were monitored and electrolytes were replaced as needed. He was stable for discharge home and will follow-up with PCP. It was discussed with the patient to have carotid ultrasound which cannot be done over the weekend so family preferred patient to have that done outpatient. Discharge Medications Discharge Medications: Home Medication List acetaminophen 325 mg capsule (Tylenol) 650 mg PO QID PRN 08/25/23 [History] baclofen 10 mg tablet 10 mg PO TID 08/25/23 [History] cholecalciferol (vitamin D3) 50 mcg (2,000 unit) capsule (Vitamin D3) 50 mcg PO QDAY 08/25/23 [History] finasteride 5 mg tablet 5 mg PO QDAY 08/25/23 [History] lidocaine 5 % topical ointment 1 applic topical QID PRN 08/25/23 [History] prednisone 5 mg tablets in a dose pack 5 mg PO DIRECTED 08/25/23 [History] rosuvastatin 20 mg tablet 20 mg PO QDAY 08/25/23 [History] sennosides 8.6 mg tablet (Senokot) 8.6 mg PO BID 08/25/23 [History] tamsulosin 0.4 mg capsule (Flomax) 0.4 mg PO QDAY 08/25/23 [History] Prescriptions: Discharge Disposition Discharge Disposition: Home Discharge Plan Discharge Plan Patient Disposition: 01 HOME, SELF-CARE Condition: Stable Health Concerns: Post Hospitalization: new medications and changes needed to prevent readmission or further decline. Pt educated and given instructions on all concerns. Plan of Treatment: Continue with present treatment and follow up plan. Pt is to keep follow up appointment as instructed and take medications as ordered. Prescriptions: No Action sennosides [Senokot] 8.6 mg Tablet 8.6 mg PO BID baclofen 10 mg Tablet 10 mg PO TID prednisone 5 mg Tablets,Dose Pack 5 mg PO DIRECTED Rx Instructions: see taper instructions finasteride 5 mg Tablet 5 mg PO QDAY rosuvastatin 20 mg Tablet 20 mg PO QDAY acetaminophen [Tylenol] 325 mg Capsule 650 mg PO QID PRN cholecalciferol (vitamin D3) [Vitamin D3] 50 mcg (2,000 unit) Capsule 50 mcg PO QDAY lidocaine 5 % Ointment 1 applic TOPICAL QID PRN tamsulosin [Flomax] 0.4 mg Capsule 0.4 mg PO QDAY Orders to Discharge Patient Discharge Orders: Discharge (Routine); Ordered 08/26/23 Ordered By: Ila Bolanos Follow ups/Referrals Follow ups/Referrals: JESUS PURI [Primary Care Provider] - 3 days Instructions Instructions: Confusion, Transient Ischemic Attack, [id number] Stand Alone Forms: Excuse From Work or School, Post Hospital Follow Up Care
== END 2023-08-26 12:55 | disposition home or self-care (01) ==
LOC: ER 10:07 → MED/SURG 10:07
PROVIDERS: ADMIT Internal Medicine; ATTEND Internal Medicine